=== PATIENT | female | born 1980 ===

== ENCOUNTER 2017-01-21 07:30 | Emergency (ER) | payer MEDICAID ==
[2017-01-21 08:09] LABS: HCG,QUALITATIVE URINE NEGATIVE (NEGATIVE)
--- NOTE | 2017-01-21 08:12 | C.PDOC ---
History Of Present Illness 36 y/o female w/o significant PMHx presents to ED for evaluation of gradual onset of headache and a few episodes of vomiting since last night. Pt also reports mild abdominal discomfort. Otherwise, pt denies recent illness, denies worse headache of life, visual changes, focal deficits, drooling, dysphagia, dyspnea, neck pain, CP, SOB, denies hematemesis, diarrhea, melena, UTI sx, back pain. Ambulate to Ed for evaluation, not n any apparent distress. Time Seen by Provider: 01/21/17 07:37 Chief Complaint (Nursing): Abdominal Pain History Per: Patient History/Exam Limitations: no limitations Onset/Duration Of Symptoms: Hrs Current Symptoms Are (Timing): Still Present Severity: Moderate Radiation Of Pain To:: None Quality Of Discomfort: "Pain" Associated Symptoms: Vomiting. denies: Fever, Chills, Diarrhea, Chest Pain Exacerbating Factors: None Alleviating Factors: None Recent travel outside of the [place]: No Past Medical History Reviewed: Historical Data, Nursing Documentation, Vital Signs Vital Signs: Last Vital Signs Temp 97.6 F 01/21/17 07:34 Pulse 70 01/21/17 07:34 Resp 20 01/21/17 07:34 BP 123/79 01/21/17 07:34 Pulse Ox 99 01/21/17 08:40 Family History: States: Unknown Family Hx - Social History Hx Alcohol Use: No Hx Substance Use: No - Immunization History Hx Tetanus Toxoid Vaccination: No Hx Influenza Vaccination: No Hx Pneumococcal Vaccination: No Review Of Systems Except As Marked, All Systems Reviewed And Found Negative. Constitutional: Negative for: Fever, Chills Eyes: Negative for: Vision Change ENT: Negative for: Throat Pain Cardiovascular: Negative for: Chest Pain Respiratory: Negative for: Cough Gastrointestinal: Positive for: Vomiting, Abdominal Pain. Negative for: Diarrhea Neurological: Positive for: Headache Physical Exam - Physical Exam Appears: Well, Non-toxic, No Acute Distress Skin: Warm, Dry, No Rash Eye(s): bilateral: PERRL Oral Mucosa: Moist, No Drooling Throat: No Erythema, No Drooling Neck: Trachea Midline, Supple, Other ((-) meningeal sign) Chest: Symmetrical Cardiovascular: Rhythm Regular Respiratory: No Decreased Breath Sounds, No Accessory Muscle Use, No Rales, No Rhonchi, No Stridor, No Wheezing Gastrointestinal/Abdominal: Soft, No Tenderness, No Distention, No Guarding Back: No CVA Tenderness Extremity: Normal ROM, No Pedal Edema Extremity: Bilateral: Atraumatic Neurological/Psych: Oriented x3, Normal Speech, Normal Cognition ED Course And Treatment - Laboratory Results Result Diagrams: 01/21/17 08:56 01/21/17 08:56 Lab Interpretation: Normal Urine POC: Negative O2 Sat by Pulse Oximetry: 99 (room air) Pulse Ox Interpretation: Normal Progress Note: Plan: tylenol, rapid strep, UA, u-preg. On re-evaluation, pt is afebrile, hemodynamicaly stable. Non-toxic, reports moderate imprpovement in sx after ED treatment. Tolerate Po well in ED. PulsEOx 99% RA. ENT: no acute findings. neck: Supple, (-) meningeal sign. Lungs: CTA B/L, BS equal B/L. Abd : benign, (-) guarding, (-) rebound, (-) localized tenderness. back: (-) CVA tenderness. neurologicaly intact. Blood work review and appears normal. UA- noraml study, preg (-). Pt has clinical findings c/w mild headache, vomiting. Pt advised. ref. to F/u with PMD in 1-2 days for re-eval. return to ED at any time if any worsening or new changes. Disposition Counseled Patient/Family Regarding: Studies Performed, Diagnosis, Need For Followup, Rx Given - Disposition Referrals: at [facility] [Outside] Disposition: HOME/ ROUTINE Disposition Time: 09:59 Condition: STABLE Additional Instructions: Encourage fluids Tylenol for headache Follow up with PMD in 1-2 days for re-evaluation. RETURN TO ED AT ANY TIME IF ANY WORSENING OR PERSISTENT HEADACHE, VOMITING OR ANY OTHER NEW CHANGES. Prescriptions: Ondansetron ODT [Zofran ODT] 1 odt PO BID PRN #6 odt PRN Reason: Nausea/Vomiting Instructions: Acute Nausea and Vomiting (ED) Forms: [facility] (Czech) - Clinical Impression Clinical Impression: Nausea, Vomiting - PA / MANAGER PHARMACY / Resident Statement MD/DO has reviewed & agrees with the documentation as recorded. - Scribe Statement The provider has reviewed the documentation as recorded by the Scribjeffrey Arango All medical record entries made by the Scribe were at my direction and personally dictated by me. I have reviewed the chart and agree that the record accurately reflects my personal performance of the history, physical exam, medical decision making, and the department course for this patient. I have also personally directed, reviewed, and agree with the discharge instructions and disposition.
[2017-01-21 08:26] LABS: SQUAMOUS EPITHIAL 15 /hpf (0-5); URINE BILIRUBIN NEGATIVE (NEGATIVE); URINE CLARITY Hazy (Clear); URINE COLOR Yellow (YELLOW); URINE GLUCOSE (UA) NORMAL (Normal); URINE LEUKOCYTE ESTERASE NEG Leu/uL (Negative); URINE NITRATE NEGATIVE (NEGATIVE); URINE PROTEIN NEGATIVE (NEGATIVE); URINE UROBILINOGEN NORMAL mg/dL (0.2-1.0)
[2017-01-21 08:34] LABS: URINE BLOOD 1+ (NEGATIVE)
[2017-01-21] MEDS ORDERED: Sodium Chloride 0.9% 1,000 ML IV ONE (08:40)
[2017-01-21] MEDS ORDERED: Sodium Chloride 0.9% 1,000 ML ONE (08:52)
[2017-01-21 09:00] LABS: BASO % 0.4 % (0.0-2.0); HEMOGLOBIN 12.1 g/dL (11.0-16.0); LYMPH # 1.4 K/uL (1.0-4.3); LYMPH % 14.7 % (20.0-40.0); MEAN CELL VOLUME 88.8 fL (81.0-99.0); MEAN CORPUSCULAR HEMOGLOBIN 29.3 pg (27.0-31.0); MEAN PLATELET VOLUME 7.5 fL (7.2-11.7); MONO # 0.5 K/uL (0.0-0.8); MONO % 5.6 % (0.0-10.0); NEUT # 7.4 K/uL (1.8-7.0); NEUT % 79.3 % (50.0-75.0); RBC 4.14 Mil/uL (3.80-5.20); RED CELL DISTRIBUTION WIDTH 14.2 % (11.5-14.5); WHITE BLOOD COUNT 9.3 K/uL (4.8-10.8)
[2017-01-21 09:13] LABS: AMYLASE 81 U/L (30-110); GFR AFRICAN-AMERICAN > 60; GFR NON-AFRICAN AMERICAN > 60; LIPASE 199 U/L (23-300)
[2017-01-21 09:14] LABS: BLOOD UREA NITROGEN 10 mg/dL (7-17); CALCIUM 9.2 mg/dl (8.6-10.4)
[2017-01-21 10:10] VITALS: BP 93/56; PULSE 64; RESP 18; TEMP 98.5; O2SAT 100
== END 2017-01-21 10:23 | disposition home or self-care (01) ==
LOC: C.ER 07:30
DX: R51 Headache (principal); R11.2 Nausea with vomiting, unspecified
CPT/HCPCS: 80048; 81001; 82150; 83690; 84703; 85025; 87070; 87430; 96360; 99284; J7040

== ENCOUNTER 2017-11-10 22:35 | Emergency (ER) | payer MEDICAID ==
[2017-11-10 23:13] LABS: HCG,QUALITATIVE URINE NEGATIVE (NEGATIVE)
[2017-11-10] MEDS ORDERED: DiphenhydrAMINE 50 mg/ml Inj IVP STA (23:15)
[2017-11-10] MEDS ORDERED: Sodium Chloride 0.9% 1,000 ML IV ONE (23:16)
--- NOTE | 2017-11-10 23:18 | C.PDOC ---
History Of Present Illness 37 year old female, with no significant PMHx, presents to the ED for evaluation of headache and generalized body aches which began yesterday. Patient describes her pain as a "throbbing" sensation to her bitemporal regions. Patient reports having two episodes of vomiting, and states her vomitus consisted of the food she had eaten prior. She took Tylenol at home with no improvement. Patient denies fever, chills, sore throat, ear pain, runny nose, neck pain, light sensitivity, or history of migraines. Patient states this is not the worst headache of her life. Chief Complaint (Nursing): Headache History Per: Patient History/Exam Limitations: no limitations Onset/Duration Of Symptoms: Hrs Current Symptoms Are (Timing): Still Present Quality: "Pain", Other (throbbing ) Preceeding Symptoms: denies: Known Migraine Symptoms Associated Symptoms: Vomiting. denies: Photophobia Additional History Per: Patient Past Medical History Reviewed: Historical Data, Nursing Documentation, Vital Signs Vital Signs: Last Vital Signs Temp 98.5 F 11/11/17 00:16 Pulse 60 11/11/17 00:16 Resp 16 11/11/17 00:16 BP 87/41 L 11/11/17 00:16 Pulse Ox 100 11/11/17 00:16 - Medical History PMH: No Chronic Diseases Denies: Diabetes, Hepatitis, HIV, HTN, Seizures, Sexually Transmitted Disease Surgical History: No Surg Hx Family History: States: Unknown Family Hx - Social History Hx Alcohol Use: No Hx Substance Use: No - Immunization History Hx Tetanus Toxoid Vaccination: No Hx Influenza Vaccination: No Hx Pneumococcal Vaccination: No Review Of Systems Constitutional: Negative for: Fever, Chills Eyes: Negative for: Other (light sensitivity) ENT: Negative for: Ear Pain, Nose Discharge, Throat Pain Gastrointestinal: Positive for: Vomiting Musculoskeletal: Positive for: Other (generalized body aches ). Negative for: Neck Pain Neurological: Positive for: Headache Physical Exam - Physical Exam Appears: Non-toxic, No Acute Distress, Other (smiling ) Skin: Normal Color, Warm, Dry Head: Atraumatic, Normacephalic Eye(s): bilateral: Normal Inspection Ear(s): Bilateral: Normal Nose: Normal, No Discharge Oral Mucosa: Moist Throat: Normal, No Erythema, No Exudate Neck: Supple, Other (no meningismus, negative kernig and brudzinski sign ) Chest: Symmetrical, No Deformity, No Tenderness Cardiovascular: Rhythm Regular, No Murmur Respiratory: Normal Breath Sounds, No Rales, No Rhonchi, No Wheezing Gastrointestinal/Abdominal: Soft, No Tenderness, No Guarding, No Rebound Extremity: Normal ROM, Capillary Refill (less than 2 seconds ) Neurological/Psych: Oriented x3, Normal Speech, Normal Cognition Gait: Steady ED Course And Treatment O2 Sat by Pulse Oximetry: 95 Medical Decision Making Medical Decision Making: Impression: cephalgia (likely migraine varied) vs muscle tension headache Plan: * Urinalysis * Benadryl IVP * Compazine IVP * Toradol IVP * IV Fluids * reassess and disposition Progress: Urinalysis ordered and reviewed. Benadryl IVP, Compazine IVP, Toradol IVP and IV Fluids administered. On re-examination, patient is resting comfortably, showing no signs of distress and reports an improvement in her symptoms. Patient is stable for discharge and is advised to f/u with her PMD within 1-2 days for further evaluation and/or return to the ED if symptoms persist or worsen. Disposition - Disposition Referrals: [facility] [Outside] Disposition: HOME/ ROUTINE Disposition Time: 00:51 Condition: GOOD Prescriptions: Acetaminophen/Butalbital/Caf [Fioricet] 1 tab PO QID PRN #16 tab PRN Reason: Pain, Mild (1-3) Instructions: Migraine Headache (DC) Forms: [facility] (Faroese) Print Language: TRINIDADIAN - Clinical Impression Clinical Impression: Headache, Migraine - Scribe Statement The provider has reviewed the documentation as recorded by the Scribe (Nevaeh Savage) Provider Attestation: All medical record entries made by the Scribe were at my direction and personally dictated by me. I have reviewed the chart and agree that the record accurately reflects my personal performance of the history, physical exam, medical decision making, and the department course for this patient. I have also personally directed, reviewed, and agree with the discharge instructions and disposition.
[2017-11-10 23:20] LABS: SQUAMOUS EPITHIAL 45 /hpf (0-5); URINE BACTERIA FEW (<OCC); URINE BILIRUBIN NEGATIVE (NEGATIVE); URINE BLOOD 3+ (NEGATIVE); URINE CLARITY Hazy (Clear); URINE COLOR Red (YELLOW); URINE GLUCOSE (UA) NORMAL (Normal); URINE LEUKOCYTE ESTERASE NEG Leu/uL (Negative); URINE PROTEIN 2+ mg/dL (NEGATIVE); URINE UROBILINOGEN NORMAL mg/dL (0.2-1.0)
[2017-11-10] MEDS ORDERED: DiphenhydrAMINE 50 mg/ml Inj ONE (23:31)
[2017-11-11 02:07] VITALS: BP 90/40; PULSE 72; RESP 18; TEMP 97.3; O2SAT 96
== END 2017-11-11 02:03 | disposition home or self-care (01) ==
LOC: C.ER 22:35
DX: G43.909 Migraine, unspecified, not intractable, without status migrainosus (principal)
CPT/HCPCS: 81001; 84703; 96374; 96375; 99285; J0780; J1200; J1885; J7040